=== PATIENT | male | born 1945 | race Caucasian/White ===

== ENCOUNTER 2018-10-11 06:42 | Day surgery (SDC) ==
[~2018-10-11 06:42] MED LIST: BRIMONIDINE TARTRATE 0.2% OPTH SOL OP PRN; LIDOCAINE 1% 20 ML MDV ID STA; ZOFRAN 4 MG/2 ML IVP ONE
[2018-10-11] MEDS: BETADINE OPTH PREP OP PRN ×3 (06:55→07:30)
[2018-10-11] MEDS: TETRACAINE 0.5% UNIT-DOSE OP PRN ×4 (06:55→07:42)
[2018-10-11] MEDS: CYCLOGYL 2% OPTH OP PRN ×3 (06:55→07:05)
[2018-10-11 07:06] VITALS: TEMP 97.8
[2018-10-11] MEDS: DEX-MOXI-KETOR OPTH INJ 1/0.5/0.4 MG/ML IO ONE ×2 (07:19→07:42)
[2018-10-11] MEDS: BSS WITH EPINEPHRINE OP ONE ×2 (07:19→07:42)
[2018-10-11] MEDS: LIDOCAINE 1%/PHENYLEPHRINE 1.5% BSS (SURGERY) INTRAOCULA ONE ×2 (07:19→07:42)
[2018-10-11] MEDS ORDERED: SUBLIMAZE ONE (07:38)
[2018-10-11] MEDS ORDERED: ZOFRAN 4 MG/2 ML ONE (07:38)
[2018-10-11] MEDS ORDERED: DECADRON 4 MG/ML SDV ONE (07:38)
[2018-10-11] MEDS ORDERED: VERSED ONE (07:38)
[2018-10-12 15:07] VITALS: BP 132/66
== END 2018-10-11 08:50 | disposition home or self-care (01) ==
LOC: SURG 06:42
PROVIDERS: ATTEND Ophthalmology
DX: H25.12 Age-related nuclear cataract, left eye (principal)

== ENCOUNTER 2018-10-17 06:04 | Day surgery (SDC) ==
[2018-10-17] MEDS ORDERED: BRIMONIDINE TARTRATE 0.2% OPTH SOL OP PRN (06:12)
[2018-10-17] MEDS ORDERED: BSS WITH EPINEPHRINE OP ONE (06:12)
[2018-10-17] MEDS ORDERED: DEX-MOXI-KETOR OPTH INJ 1/0.5/0.4 MG/ML IO ONE (06:12)
[2018-10-17] MEDS ORDERED: ZOFRAN 4 MG/2 ML IVP ONE (06:12)
[2018-10-17] MEDS ORDERED: LIDOCAINE 1% 20 ML MDV ID STA (06:12)
[2018-10-17] MEDS ORDERED: LIDOCAINE 1%/PHENYLEPHRINE 1.5% BSS (SURGERY) INTRAOCULA ONE (06:12)
[2018-10-17] MEDS: BETADINE OPTH PREP OP PRN ×2 (06:30→07:20)
[2018-10-17] MEDS: TETRACAINE 0.5% UNIT-DOSE OP PRN ×2 (06:30→07:19)
[2018-10-17] MEDS: CYCLOGYL 2% OPTH OP PRN ×3 (06:30→06:40)
[2018-10-17] MEDS ORDERED: ZOFRAN 4 MG/2 ML ONE (07:28)
[2018-10-17] MEDS ORDERED: VERSED ONE (07:28)
[2018-10-17] MEDS ORDERED: SUBLIMAZE ONE (07:28)
[2018-10-17 10:39] VITALS: BP 149/91
[2018-10-17 11:00] VITALS: TEMP 98.4
== END 2018-10-17 08:10 | disposition home or self-care (01) ==
LOC: SURG 06:04
PROVIDERS: ATTEND Ophthalmology
DX: H25.12 Age-related nuclear cataract, left eye (principal)